=== PATIENT | female | born 1995 | race African-American/Black ===

== ENCOUNTER 2017-03-03 22:15 | Emergency (ER) | payer SELFPAY ==
[~2017-03-03] VITALS: Ht 172.7 cm; Wt 65.0 kg
[2017-03-03 22:18] VITALS: BP 143/93; PULSE 87; RESP 14; TEMP 98; O2SAT 98
[2017-03-03] MEDS ORDERED: ROBA500T PO (22:33)
[2017-03-03] MEDS ORDERED: IBUP-232 PO (22:33)
--- NOTE | 2017-03-03 22:33 | PD ---
HPI Chief Complaint: Back/ Neck Pain or Injury Time Seen by Provider: 22:31 Travel History International Travel<30 days: No Contact w/Intl Traveler<30days: No Traveled to known affect area: No History of Present Illness HPI 21-year-old female with history of low back pain and sciatica presents to the emergency department for evaluation of exacerbation of this. Patient states the pain is in her right lower back and radiates into her right hip and buttock. She recalls no injury. States that this is happening before. Denies any fever or chills. No saddle paresthesia, loss of bowel or bladder, or lower extremity weakness. She has no other symptoms to report. PFSH Past Medical History Medical History: Denies Significant Hx Social History Alcohol Use: No Tobacco Use: No Substance Use: No Allergies-Medications (Allergen,Severity, Reaction): Coded Allergies: No Known Allergies (Unverified , 03/03/17) Reported Meds & Prescriptions Reported Meds & Active Scripts Active Robaxin (Methocarbamol) 500 Mg Tab 500 Mg PO QID PRN Ibuprofen 600 Mg Tab 600 Mg PO Q8HR PRN Review of Systems Except as stated in HPI: all other systems reviewed are Neg Physical Exam Narrative GENERAL: Well-nourished, well-developed female patient, ambulatory with a nonantalgic gait in no acute distress SKIN: Focused skin assessment warm/dry. HEAD: Normocephalic. EYES: No scleral icterus. No injection or drainage. NECK: Supple, trachea midline. No JVD or lymphadenopathy. CARDIOVASCULAR: Regular rate and rhythm without murmurs, gallops, or rubs. RESPIRATORY: Breath sounds equal bilaterally. No accessory muscle use. GASTROINTESTINAL: Abdomen soft, non-tender, nondistended. MUSCULOSKELETAL: No cyanosis, or edema. Tenderness elicited palpation of the right sacroiliac joint. Positive right sided straight leg. Sensation intact distal extremities. No hyperreflexia bilateral lower extremities. No spinal tenderness. BACK: Nontender without obvious deformity. No CVA tenderness. Data Data Last Documented VS Vital Signs Date Time Temp Pulse Resp B/P Pulse Ox O2 Delivery O2 Flow Rate FiO2 03/03/17 22:18 98.0 87 14 143/93 98 Room Air Orders Splint Or Brace Apply/Monitor (03/03/17 22:36) Ketorolac Inj (Toradol Inj) (03/03/17 22:45) Brace Quick Draw Corset (03/04/17 ) Brace Quick Draw Corset (03/03/17 ) MDM Medical Decision Making Medical Screen Exam Complete: Yes Emergency Medical Condition: Yes Medical Record Reviewed: Yes Differential Diagnosis Low back strain versus discogenic pain versus radiculopathy Narrative Course 21-year-old female presents to the emergency department for evaluation of low back pain. Physical exam is consistent with a low back pain/sciatica. Patient is treated for this and will be discharged home with outpatient pain control. She is encouraged to follow-up the primary care provider. She agrees to return immediately with any acute worsening of symptoms. Diagnosis Primary Impression: Low back pain Qualified Code: M54.41 - Acute right-sided low back pain with right-sided sciatica Referrals: Primary Care Physician Patient Instructions: General Instructions, Lower Back Exercises (ED) Departure Forms: Tests/Procedures, Work Release Enter return to work date: March 05, 2017 Additional Instructions: Ice and/or warm moist heat may help to alleviate symptoms Avoid heavy lifting, bending, and twisting Wear brace when ambulatory. Do not wear this at all times as it will weaken her core muscles, possibly worsening back pain. Follow-up with a primary care provider Return immediately to the emergency department with any acute worsening symptoms Med/Other Pt SpecificInfo: Prescription(s) given Scripts Methocarbamol (Robaxin)500 Mg [id number] Mg PO QID PRN (MUSCLE SPASM) #20 TAB Ref 0 Prov:Reyna Osullivan 03/03/17 Ibuprofen 600 Mg [id number] Mg PO Q8HR PRN (PAIN) #30 TAB Ref 0 Prov:Reyna Osullivan 03/03/17 Disposition: 01 DISCHARGE HOME Condition: Stable Reyna Osullivan March 03, 2017 22:33
[2017-03-03] MEDS ORDERED: KETOROLAC TROMETHAMINE 60 MG/2 ML (IM) VIAL IM ONE (22:45)
== END 2017-03-03 23:22 | disposition home or self-care (01) ==
LOC: NEPK 22:15
DX: M54.41 Lumbago with sciatica, right side (principal)
CPT/HCPCS: 96372; 99283; J1885; L0627